=== PATIENT | male | born 1995 | race Two or more races ===

== ENCOUNTER 2018-04-29 18:21 | Inpatient (IN) | payer SELFPAY ==
[~2018-04-29] VITALS: Ht 162.6 cm; Wt 98.9 kg
[2018-04-29] MEDS ORDERED: HYDROMORPHONE 1 MG/1 ML DISP.SYRIN ONE (18:54)
[2018-04-29] MEDS ORDERED: ONDANSETRON HCL/PF 4 MG/2 ML VIAL ONE (18:54)
[2018-04-29] MEDS ORDERED: ONDANSETRON HCL/PF 4 MG/2 ML VIAL IVP ONE (19:00)
[2018-04-29] MEDS ORDERED: HYDROMORPHONE INJ 2 MG/ML DISP.SYRIN IV ONE (19:00)
[2018-04-29] MEDS ORDERED: IV NS 0.9% 1,000 ML BAG IV ONE (19:00)
--- NOTE | 2018-04-29 19:07 | NUR ---
NAD- Stable reclining in bed conversant w/friend at bedside NKE with RN-Cecelia
--- NOTE | 2018-04-29 19:20 | NUR ---
XRAY AT BEDSIDE.
--- NOTE | 2018-04-29 19:21 | NUR ---
REPORT RECEIVED FROM LANDON GANDHI FOR CORDELIA.
--- NOTE | 2018-04-29 19:24 | NUR ---
LAB AT BEDSIDE FOR DRAW.
[2018-04-29 19:37] LABS: BASOPHILS # (AUTO) 0.3 /CMM (0.0-0.2); BASOPHILS % (AUTO) 1.7 % (0.0-2.0); EOSINOPHILS % (AUTO) 0.7 % (0.0-6.0); HEMATOCRIT 45 % (39-51); HEMOGLOBIN 14.6 g/dL (13.5-17.5); LYMPHOCYTES # (AUTO) 1.3 /CMM (0.8-4.8); LYMPHOCYTES % (AUTO) 8.3 % (20.0-44.0); MEAN CORPUSCULAR HGB CONC 33 g/dl (31.0-36.0); MEAN CORPUSCULAR VOLUME 82 fL (80-96); MONOCYTES # (AUTO) 0.8 /CMM (0.1-1.30); NEUTROPHILS # (AUTO) 12.8 /CMM (1.8-8.9); NEUTROPHILS % (AUTO) 84.3 % (43.0-81.0); PLATELET COUNT (AUTO) 314 /CMM (150-450); RDW COEFFICIENT OF VARIATION 13.4 (11.5-15.0); RED BLOOD CELL COUNT(AUTO) 5.46 MIL/uL (4.5-6.0); WHITE BLOOD COUNT (AUTO) 15.3 K/uL (4.3-11.0)
[2018-04-29 19:58] LABS: CALCIUM, SERUM 8.5 mg/dL (8.5-10.1); POTASSIUM 3.7 mmol/L (3.5-5.1)
[2018-04-29 20:14] LABS: ALBUMIN 3.9 g/dL (3.4-5.0); BILIRUBIN,DIRECT 0.2 mg/dL (0.0-0.2); BILIRUBIN,TOTAL 1.4 mg/dL (0.2-1.0); TOTAL PROTEIN, SERUM 7.2 g/dL (6.4-8.2)
[2018-04-29] MEDS ORDERED: ONDANSETRON HCL/PF 4 MG/2 ML VIAL IVP PRN (20:30)
[2018-04-29] MEDS ORDERED: CIPROFLOXACIN IV RTU 400 MG in PREMIX 1 EA IV SCH (20:30)
[2018-04-29] MEDS ORDERED: ACETAMINOPHEN 325 MG TABLET PO PRN (20:30)
--- NOTE | 2018-04-29 21:10 | NUR ---
REPORT GIVEN TO LANDON GROVES FOR CORDELIA.
[2018-04-29] MEDS ORDERED: CIPROFLOXACIN IV RTU 200 ML IV ONE (21:32)
[2018-04-29] MEDS ORDERED: IV PREMIX D5 1/2NS + KCL 1,000 ML IV ONE (21:35)
[2018-04-29 21:40] VITALS: BP 121/68
[2018-04-29] MEDS: Potassium Chloride 20 MEQ in IV D5/0.45 NACL 1,000 ML IV PRN (21:43)
--- NOTE | 2018-04-29 21:48 | NUR ---
PT TRANSPORTED TO [facility] 204.1 VIA STRETCHER WITH EMT. VSS.
[2018-04-29] MEDS ORDERED: METRONIDAZOLE 500MG/ NS 100ML 100 ML IV ONE (21:49)
[2018-04-29] MEDS: PANTOPRAZOLE 40 MG VIAL IV SCH (21:50)
--- NOTE | 2018-04-29 21:50 | NUR ---
MS RN NOTE RECEIVED PATIENT FROM DAY SHIFT, PATIENT IS ALERT AND ORIENTEDX4, AMBULATORY, NO S/S OF RESPIRATORY DISTRESS AND COMPLAINS OF ABDOMINAL PAIN 03/17. IV ON LEFT AC IS PATENT AND INTACT, WILL CONNECT TO FLUID SOON. SKIN IS INTACT, NO EDEMA NOTED. SRX2, BED IN LOW POSITION, CALL LIGHT WITHIN REACH, WILL CONTINUE TO MONITOR PATIENT. Addendum: 04/30/18 at 0335 by TONIE CARR RN [facility]; RECEIVED PATIENT FROM ER FOR ADMISSION.
[2018-04-29] MEDS: METRONIDAZOLE 500MG/ NS 100ML 500 MG in PREMIX 1 EA IV SCH (22:25)
[2018-04-29] MEDS: methylPREDNISolone SOD SUCC 40 MG/ML VIAL IV SCH (22:26)
[2018-04-29] MEDS: HYDROMORPHONE INJ 0.5 MG/0.5 ML SYRINGE IV PRN (23:02)
[2018-04-30] MEDS: LORAZEPAM INJ 2 MG/ML VIAL IV PRN ×2 (00:44→20:20)
[2018-04-30] MEDS ORDERED: METRONIDAZOLE 500MG/ NS 100ML 100 ML IV ONE (04:34)
[2018-04-30] MEDS: METRONIDAZOLE 500MG/ NS 100ML 500 MG in PREMIX 1 EA IV SCH ×3 (04:49→22:08)
[2018-04-30] MEDS: methylPREDNISolone SOD SUCC 40 MG/ML VIAL IV SCH ×2 (04:49→12:39)
--- NOTE | 2018-04-30 06:33 | NUR ---
MS NR NOTE PATIENT IS RESTING IN BED COMFORTABLY, NO ACUTE DISTRESS NOTED SINCE ADMISSION. IV ON LEFT AC IS PATENT AND INTACT, FLUID IS RUNNING. WILL ENDORSE TO DAY SHIFT NURSE FOR CORDELIA.
[2018-04-30 07:32] LABS: HEMATOCRIT 46 % (39-51); HEMOGLOBIN 14.9 g/dL (13.5-17.5); LYMPHOCYTES % (AUTO) 6.4 % (20.0-44.0); MEAN CORPUSCULAR HGB CONC 33 g/dl (31.0-36.0); MEAN CORPUSCULAR VOLUME 85 fL (80-96); MONOCYTES # (AUTO) 0.2 /CMM (0.1-1.30); NEUTROPHILS # (AUTO) 15.3 /CMM (1.8-8.9); NEUTROPHILS % (AUTO) 92.6 % (43.0-81.0); PLATELET COUNT (AUTO) 311 /CMM (150-450); RDW COEFFICIENT OF VARIATION 14.4 (11.5-15.0); RED BLOOD CELL COUNT(AUTO) 5.38 MIL/uL (4.5-6.0); WHITE BLOOD COUNT (AUTO) 16.5 K/uL (4.3-11.0)
--- NOTE | 2018-04-30 07:33 | NUR ---
MS RN OPENING NOTES RECEIVED PT LAYING IN BED, SLEEPING COMFORTABLY. PT IS A/OX4, AFEBRILE. RESPIRATIONS ARE EVEN AND UNLABORED, NOT IN ANY ACUTE DISTRESS NOTED. IV ACCESS INTACT, NO INFILTRATION NOTED. DRESSING KEPT CLEAN AND DRY. REMINDED PT THAT HE IS NPO FOR NOW. SAFETY MEASURES ARE IN PLACE. INSTRUCTED PT TO USE CALL LIGHT WHEN ASSISTANCE IS NEEDED, CALL LIGHT IS LEFT WITHIN REACH. WILL CONTINUE TO MONITOR THROUGHOUT SHIFT FOR CONTINUITY OF CARE.
[2018-04-30 07:59] LABS: ALBUMIN 4.1 g/dL (3.4-5.0); BILIRUBIN,TOTAL 1.4 mg/dL (0.2-1.0); MAGNESIUM 2.1 mg/dL (1.8-2.4); PHOSPHORUS 3.8 mg/dL (2.5-4.9); POTASSIUM 3.9 mmol/L (3.5-5.1); TOTAL PROTEIN, SERUM 8.1 g/dL (6.4-8.2)
[2018-04-30 08:00] VITALS: BP 120/74
[2018-04-30 08:08] LABS: C-REACTIVE PROTEIN 0.3 mg/dL (0.0-0.9); THYROID STIMULATING HORMONE 1.113 uIU/mL (0.358-3.74)
[2018-04-30] MEDS: PANTOPRAZOLE 40 MG VIAL IV SCH (09:39)
[2018-04-30] MEDS: CIPROFLOXACIN IV RTU 400 MG in PREMIX 1 EA IV SCH ×2 (09:40→20:20)
[2018-04-30] MEDS: HYDROMORPHONE INJ 0.5 MG/0.5 ML SYRINGE IV PRN (12:39)
[2018-04-30] MEDS: Potassium Chloride 20 MEQ in IV D5/0.45 NACL 1,000 ML IV PRN (12:48)
[2018-04-30] MEDS ORDERED: PEG 3350/NA SULF,BICARB,CL/KCL 4,000 ML BOTTLE PO ONE (13:00)
--- NOTE | 2018-04-30 13:30 | NUR ---
PT SEEN AND EXAMINED BY DR. MONTOYA W/ ORDERS FOR EGD/COLONOSCOPY TOMORROW AND TO START GOLYTELY TODAY, NPO POST MIDNIGHT. ORDERS NOTED AND CARRIED OUT. CONSENTS SIGNED.
[2018-04-30] MEDS: LACTOBACILLUS RHAMNOSUS GG 1 EACH CAP.SPRINK PO SCH ×2 (14:54→20:20)
[2018-04-30 16:00] VITALS: BP 128/62
[2018-04-30 16:15] LABS: APPEARANCE,URINE CLEAR (CLEAR); BILIRUBIN,URINE NEGATIVE (NEGATIVE); BLOOD, URINE TRACE-INTA Ery/uL (NEGATIVE); COLOR,URINE YELLOW (YELLOW); KETONES,URINE 3+ (NEGATIVE); LEUKOCYTE ESTERASE ,URINE NEGATIVE (NEGATIVE); NITRITE, URINE NEGATIVE (NEGATIVE); PROTEIN,URINE NEGATIVE (NEGATIVE); UGLUCOSE NEGATIVE (NEGATIVE); UROBILINOGEN,URINE 0.2 EU/dL (0.2)
[2018-04-30 16:42] LABS: BACTERIA,URINE None seen /HPF (None Seen); SQUAMOUS EPITHELIAL CELL,UR Few /HPF (None Seen); WBC,URINE 0-2 /HPF (0-3)
--- NOTE | 2018-04-30 18:21 | NUR ---
MS RN CLOSING NOTES ALL DUE MEDS GIVEN, NEEDS MET AND RENDERED. PT REMAINS A/OX4, AFEBRILE. RESPIRATIONS ARE EVEN AND UNLABORED, NOT IN ANY ACUTE DISTRESS NOTED. PT'S PAIN TO ABDOMEN IS CONTROLLED BY DILAUDID, NO C/O CHEST PAIN, NO N/V, SOB NOTED. IV ACCESS INTACT, NO INFILTRATION NOTED. DRESSING KEPT CLEAN AND DRY. SAFETY MEASURES ARE IN PLACE. REMINDED PT TO USE CALL LIGHT WHEN ASSISTANCE IS NEEDED, CALL LIGHT IS LEFT WITHIN REACH. WILL ENDORSE TO NEXT SHIFT FOR CONTINUITY OF CARE.
[2018-04-30] MEDS: ONDANSETRON HCL/PF 4 MG/2 ML VIAL IV PRN (18:41)
[2018-04-30 20:00] VITALS: BP 112/78
--- NOTE | 2018-04-30 20:00 | NUR ---
MS/RN OPENING NOTES PATIENT IN BED, ABLE TO VERBALIZE NEEDS, RESPIRATIONS EVEN AND UNLABORED, REPORTED FEELING ANXIOUS ABOUT PROCEDURE, FAMILY FOR SUPPORT, ATIVAN GIVEN, WILL MONITOR, STOOL TO COLLECT. RECEIVED PATIENT AND SKIN COOL TO TOUCH, REQUIRE FREQUENT MONITORNG FOR SAFETY AND KEEP CALM. NOTED SOME CRYING EPISODE BUT FOR RELEASE OF EMOTION. AM ENDORSE TO CONTINUE CORDELIA, NPO AT MIDNIGHT, ON GO LITELY, MONITORING PATIENT. INTAKE AND OUTPUT. TOLERATED MEDICATION. WILL MONITOR., BED IN LOCK POSITION.
[2018-04-30 21:27] LABS: OCCULT BLOOD STOOL POSITIVE (NEGATIVE)
[2018-05-01] MEDS: METRONIDAZOLE 500MG/ NS 100ML 500 MG in PREMIX 1 EA IV SCH ×3 (05:40→20:27)
--- NOTE | 2018-05-01 06:26 | NUR ---
204-1 MS/RN NOTES PATIENT ABLE TO SLEEP DURING THE NIGHT, RESPIRATIONS EVEN AND UNLABORED, SKIN WARM TO TOUCH, WITH BATHROOM PROVELEGE SUPERVISED. DENIES PAIN. PROVIDED WARM BLANKET. ON NPO FOR PROCEDURE THIS AM, PATIENT AWARE AND FAMILY INVOLVE. MONITORED FOR ANY S/S OF DISCOMFORT. BED IN LOCK POSIITON, CALL LIGHTS WITHIN REACH. WILL ENDORSE TO AM RN FOR CORDELIA.
--- NOTE | 2018-05-01 07:05 | NUR ---
ms rn initial notes Received patient in bed, awake, head of bed elevated, no SOB or distress noted, on room air and tolerated well. Patient is NPO for scheduled EGD. IV intact and patent with IVF infusing well. Call light with in patient reach, will continue to monitor accordingly.
[2018-05-01 07:44] LABS: BASOPHILS # (AUTO) 0.1 /CMM (0.0-0.2); BASOPHILS % (AUTO) 0.4 % (0.0-2.0); HEMATOCRIT 46 % (39-51); HEMOGLOBIN 14.6 g/dL (13.5-17.5); LYMPHOCYTES # (AUTO) 2.3 /CMM (0.8-4.8); LYMPHOCYTES % (AUTO) 10.6 % (20.0-44.0); MEAN CORPUSCULAR HGB CONC 32 g/dl (31.0-36.0); MEAN CORPUSCULAR VOLUME 84 fL (80-96); MONOCYTES # (AUTO) 1.5 /CMM (0.1-1.30); MONOCYTES % (AUTO) 6.8 % (2.0-12.0); NEUTROPHILS # (AUTO) 18.1 /CMM (1.8-8.9); NEUTROPHILS % (AUTO) 82.2 % (43.0-81.0); PLATELET COUNT (AUTO) 311 /CMM (150-450); RDW COEFFICIENT OF VARIATION 14.5 (11.5-15.0); RED BLOOD CELL COUNT(AUTO) 5.45 MIL/uL (4.5-6.0); WHITE BLOOD COUNT (AUTO) 22.1 K/uL (4.3-11.0)
[2018-05-01 07:49] LABS: CREATININE 1.1 mg/dL (0.6-1.3); MAGNESIUM 2.2 mg/dL (1.8-2.4); PHOSPHORUS 4.5 mg/dL (2.5-4.9); POTASSIUM 3.5 mmol/L (3.5-5.1)
[2018-05-01 08:00] VITALS: BP 127/67
[2018-05-01] MEDS: PANTOPRAZOLE 40 MG VIAL IV SCH (08:19)
[2018-05-01] MEDS: CIPROFLOXACIN IV RTU 400 MG in PREMIX 1 EA IV SCH ×2 (08:20→21:55)
[2018-05-01] MEDS: LACTOBACILLUS RHAMNOSUS GG 1 EACH CAP.SPRINK PO SCH ×2 (08:20→17:46)
[2018-05-01] MEDS: HYDROMORPHONE INJ 2 MG/ML DISP.SYRIN IV PRN ×2 (09:35→20:17)
[2018-05-01 13:00] VITALS: BP 119/71
--- NOTE | 2018-05-01 13:00 | NUR ---
ms rn notes Patient came back from the surgery, asleep but able to wake up, vital signs checked and recorded. Will continue to monitor.
[2018-05-01 13:15] VITALS: BP 129/72
[2018-05-01 13:26] LABS: LYMPHOCYTES % (MANUAL) 16 % (16-48); MONOCYTES % (MANUAL) 3 % (0-11.0); NEUTROPHILS % (MANUAL) 81 (42-76)
[2018-05-01 13:45] VITALS: BP 121/68
[2018-05-01] MEDS ORDERED: METR500T PO (15:31)
[2018-05-01] MEDS ORDERED: CIPR500T5 PO (15:31)
[2018-05-01] MEDS ORDERED: PANT40TA2 PO (15:31)
[2018-05-01] MEDS ORDERED: LIPA1CAP15 PO (15:31)
[2018-05-01 16:00] VITALS: BP 110/57
[2018-05-01] MEDS: LIPASE/PROTEASE/AMYLASE 1 EACH CAPSULE.DR PO SCH (17:46)
--- NOTE | 2018-05-01 19:14 | NUR ---
ms rn closing notes All needs provided, attended, and anticipated. Patient in stable condition. Endorsed to next shift RN to continue care. Call light with in patient reach.
--- NOTE | 2018-05-01 19:20 | NUR ---
MS/RN OPENING NOTES PT RECEIVED A/OX4. USING RESTROOM AT THIS TIME. ON ROOM AIR, BREATHING EVEN AND UNLABORED. NO S/S OF ACUTE DISTRESS AT THIS TIME. FAMILY AT BEDSIDE. BED IN LOW/LOCKED POSITION WITH CALL LIGHT IN REACH AND BILATERAL UPPER SIDE RAILS IN PLACE. WILL ASSIST BACK INTO BED
--- NOTE | 2018-05-01 19:59 | NUR ---
MS/RN NOTES PT USING RESTROOM. SHIFT SUPERVISOR MELTING NEARBY. PT SAW BLOOD IN THE TOILET. FELT LIGHT HEADED AND GRABBED ONTO THE DOOR. SHIFT SUPERVISOR MELTING GRABBED PT AND ASSISTED TO THE FLOOR. NO INJURY TO HEAD OR BODY. PT ASSISTED BACK INTO BED. VS TAKEN AND STABLE. BP 111/64, HR 82, RR 18, SPO2 96% ON RA. MEASUREMENT ADVISOR MD NOTIFIED. WILL CONTINUE TO MONITOR.
[2018-05-01 20:00] VITALS: BP 111/64
[2018-05-01] MEDS: LORAZEPAM INJ 2 MG/ML VIAL IV PRN (23:42)
[2018-05-02] MEDS: METRONIDAZOLE 500MG/ NS 100ML 500 MG in PREMIX 1 EA IV SCH ×2 (05:33→12:32)
[2018-05-02] MEDS: ONDANSETRON HCL/PF 4 MG/2 ML VIAL IV PRN ×2 (06:41→14:19)
[2018-05-02 06:57] LABS: BASOPHILS # (AUTO) 0.4 /CMM (0.0-0.2); BASOPHILS % (AUTO) 3.2 % (0.0-2.0); EOSINOPHILS % (AUTO) 0.3 % (0.0-6.0); HEMATOCRIT 42 % (39-51); HEMOGLOBIN 14.2 g/dL (13.5-17.5); LYMPHOCYTES # (AUTO) 1.4 /CMM (0.8-4.8); LYMPHOCYTES % (AUTO) 11.4 % (20.0-44.0); MEAN CORPUSCULAR HGB CONC 34 g/dl (31.0-36.0); MEAN CORPUSCULAR VOLUME 82 fL (80-96); MONOCYTES # (AUTO) 0.9 /CMM (0.1-1.30); MONOCYTES % (AUTO) 7.4 % (2.0-12.0); NEUTROPHILS # (AUTO) 9.8 /CMM (1.8-8.9); NEUTROPHILS % (AUTO) 77.7 % (43.0-81.0); PLATELET COUNT (AUTO) 244 /CMM (150-450); RDW COEFFICIENT OF VARIATION 13.4 (11.5-15.0); RED BLOOD CELL COUNT(AUTO) 5.09 MIL/uL (4.5-6.0); WHITE BLOOD COUNT (AUTO) 12.5 K/uL (4.3-11.0)
--- NOTE | 2018-05-02 07:10 | NUR ---
ms rn initial notes Received patient in bed, asleep, head of bed elevated, no SOB or distress noted. On room air and tolerated well. IV intact and patent with IVF infusing well. No facial grimace noted. patient is alert and oriented x 4, verbally responsive and able to make needs known. call light with in patient reach, will continue to monitor accordingly.
[2018-05-02 07:25] LABS: CALCIUM, SERUM 8.2 mg/dL (8.5-10.1); MAGNESIUM 2.2 mg/dL (1.8-2.4); PHOSPHORUS 4.1 mg/dL (2.5-4.9); POTASSIUM 3.2 mmol/L (3.5-5.1)
--- NOTE | 2018-05-02 07:33 | NUR ---
MS/RN CLOSING NOTES PT AWAKE, RESTING IN BED. REMAINS ON ROOM AIR, BREATHING EVEN AND UNLABORED. NO S/S OF ACUTE DISTRESS AT THIS TIME. DENIES PAIN. PT C/O NAUSEA AND WITH APPROX 50CC OF CLEAR YELLOW EMESIS. ADMINISTERED PRN ZOFRAN ORDERED. WITH EPISODES OF ANXIETY AND ENCOURAGED PT TO EXPRESS CONCERNS/FEELINGS. EMOTIONAL SUPPORT PROVIDED. IV TO LEFT FA PATENT AND INTACT RUNNING IVF ORDERED. BED IN LOW/LOCKED POSITION WITH CALL LIGHT IN REACH AND BILATERAL UPPER SIDE RAILS IN PLACE. ENDORSED TO DAY SHIFT RN CORDELIA.
[2018-05-02 08:00] VITALS: BP 136/71
[2018-05-02 08:04] VITALS: BP 136/71
[2018-05-02] MEDS: PANTOPRAZOLE 40 MG VIAL IV SCH (08:22)
[2018-05-02] MEDS: LIPASE/PROTEASE/AMYLASE 1 EACH CAPSULE.DR PO SCH ×3 (08:22→17:05)
[2018-05-02] MEDS: LACTOBACILLUS RHAMNOSUS GG 1 EACH CAP.SPRINK PO SCH ×2 (08:22→17:20)
[2018-05-02] MEDS: CIPROFLOXACIN IV RTU 400 MG in PREMIX 1 EA IV SCH (08:22)
[2018-05-02 10:15] LABS: *ANCANTIMYELOPEROXIDASE (MPO) <9.0 U/mL (0.0-9.0); *ANCANTIPROTEINASE 3 (PR-3) AB <3.5 U/mL (0.0-3.5)
[2018-05-02] MEDS ORDERED: POTASSIUM CHLORIDE 20 MEQ TAB.PRT.SR PO SCH ×2 (10:30→13:00)
[2018-05-02] MEDS: Potassium Chloride 20 MEQ in IV D5/0.45 NACL 1,000 ML IV PRN (12:36)
[2018-05-02 14:17] LABS: *ANCA ATYPICAL p-ANCA <1:20 titer (Neg:<1:20); *ANCA CYTOPLASMIC (C-ANCA) <1:20 titer (Neg:<1:20); *ANCA PERINUCLEAR (P-ANCA) <1:20 titer (Neg:<1:20)
[2018-05-02 16:00] VITALS: BP 124/79
[2018-05-02] MEDS ORDERED: SUCRALFATE 1 G/10 ML UDC PO ONE (18:00)
[2018-05-02] MEDS: HYDROMORPHONE INJ 2 MG/ML DISP.SYRIN IV PRN (18:50)
--- NOTE | 2018-05-02 19:00 | NUR ---
ms rn cvicu notes discharge instructions given to patent and brother and able to understand instructions. Prescription given. Signed discharge paper and belonging list. no items missing. Health teaching and education rendered. informed to follow up with GI MD in 2 weeks and amenable. No complaint of pain or discomfort noted. nor chest pain. Patient left via wheelchair accompanied by LEAD DESIGNER assigned and brother Otis in stable condition. Vital signs checked and recorded. Flu vaccine refused, <65 years old for the PNA. Skin intact no pictures needed. patient is alert and oriented x 4, verbally responsive and able to make needs known. MD and charge nurse aware.
== END 2018-05-02 19:00 | disposition home or self-care (01) | DRG 392 ==
LOC: ER 18:29 → MEDSG2 21:11
PROVIDERS: ADMIT Nurse Practitioner Acute Care; ATTEND Nurse Practitioner Acute Care
PROC: 0DB78ZX Excision of Stomach, Pylorus, Via Natural or Artificial Opening Endoscopic, Diagnostic (ICD-10-PCS; principal; 2018-05-01 11:15)
PROC: 0DBH8ZX Excision of Cecum, Via Natural or Artificial Opening Endoscopic, Diagnostic (ICD-10-PCS; principal; 2018-05-01 11:15)
PROC: 0DBP8ZX Excision of Rectum, Via Natural or Artificial Opening Endoscopic, Diagnostic (ICD-10-PCS; principal; 2018-05-01 11:15)
DX: K29.70 Gastritis, unspecified, without bleeding (principal); E86.0 Dehydration; E66.01 Morbid (severe) obesity due to excess calories; F06.4 Anxiety disorder due to known physiological condition; K40.20 Bilateral inguinal hernia, without obstruction or gangrene, not specified as recurrent; F12.90 Cannabis use, unspecified, uncomplicated; R56.9 Unspecified convulsions; Z68.37 Body mass index [BMI] 37.0-37.9, adult; F17.210 Nicotine dependence, cigarettes, uncomplicated; K44.9 Diaphragmatic hernia without obstruction or gangrene; K20.9 Esophagitis, unspecified; K62.89 Other specified diseases of anus and rectum; K52.9 Noninfective gastroenteritis and colitis, unspecified; Z80.3 Family history of malignant neoplasm of breast
CPT/HCPCS: 36415; 71045-TC; 80048-TC; 80053-TC; 80061-TC; 80076-TC; 81000-TC; 82272-TC; 83520; 83690-TC; 83735-TC; 84100-TC; 84443-TC; 85025-TC; 85652-TC; 86140-TC; 86256; 87040-TC; 87045-TC; 87081-TC; 87086-TC; 88305-TC; 88313-TC; 88342; 89055; A4216; A4606; C9113; J0744; J1170; J2060; J2405; J2704; J2920; J3480; J3490; J7030; Z7610

== ENCOUNTER 2018-05-04 00:57 | Emergency (ER) | payer SELFPAY ==
[~2018-05-04 00:57] MED LIST: CIPR500T5 PO; LIPA1CAP15 PO; METR500T PO; PANT40TA2 PO
--- NOTE | 2018-05-04 01:00 | NUR ---
CALLED PATIENT. NO RESPONSE
--- NOTE | 2018-05-04 01:20 | NUR ---
CALLED PATIENT. NO RESPONSE
--- NOTE | 2018-05-04 01:41 | NUR ---
CALLED PATIENT. NO RESPONSE
== END 2018-05-04 01:42 | disposition left against medical advice (07) ==
LOC: ER 01:02
DX: Z53.21 Procedure and treatment not carried out due to patient leaving prior to being seen by health care provider (principal); Z87.19 Personal history of other diseases of the digestive system; Z79.899 Other long term (current) drug therapy

== ENCOUNTER 2018-05-17 14:33 | Emergency (ER) | payer SELFPAY ==
[~2018-05-17] VITALS: Ht 162.6 cm; Wt 90.7 kg
[2018-05-17] MEDS ORDERED: ONDANSETRON HCL/PF 4 MG/2 ML VIAL IVP ONE (15:30)
[2018-05-17] MEDS ORDERED: KETOROLAC TROMETHAMINE INJ 30 MG/ML VIAL IV ONE (15:30)
[2018-05-17] MEDS ORDERED: IV NS 0.9% 1,000 ML BAG IV ONE (15:30)
[2018-05-17 15:41] LABS: BASOPHILS # (AUTO) 0.1 /CMM (0.0-0.2); BASOPHILS % (AUTO) 0.9 % (0.0-2.0); EOSINOPHILS % (AUTO) 0.7 % (0.0-6.0); HEMATOCRIT 46 % (39-51); HEMOGLOBIN 15.5 g/dL (13.5-17.5); LYMPHOCYTES # (AUTO) 1.7 /CMM (0.8-4.8); LYMPHOCYTES % (AUTO) 18.4 % (20.0-44.0); MEAN CORPUSCULAR HGB CONC 34 g/dl (31.0-36.0); MEAN CORPUSCULAR VOLUME 81 fL (80-96); MONOCYTES # (AUTO) 1.1 /CMM (0.1-1.30); MONOCYTES % (AUTO) 11.7 % (2.0-12.0); NEUTROPHILS # (AUTO) 6.1 /CMM (1.8-8.9); NEUTROPHILS % (AUTO) 68.3 % (43.0-81.0); PLATELET COUNT (AUTO) 292 /CMM (150-450); RDW COEFFICIENT OF VARIATION 13.2 (11.5-15.0); RED BLOOD CELL COUNT(AUTO) 5.67 MIL/uL (4.5-6.0); WHITE BLOOD COUNT (AUTO) 9.1 K/uL (4.3-11.0)
[2018-05-17 15:53] LABS: CALCIUM, SERUM 9.4 mg/dL (8.5-10.1); CREATININE 0.8 mg/dL (0.6-1.3); POTASSIUM 3.1 mmol/L (3.5-5.1)
[2018-05-17] MEDS ORDERED: ONDANSETRON HCL/PF 4 MG/2 ML VIAL ONE (15:58)
[2018-05-17] MEDS ORDERED: KETOROLAC TROMETHAMINE INJ 30 MG/ML VIAL ONE (15:58)
[2018-05-17 15:59] LABS: BILIRUBIN,DIRECT 0.2 mg/dL (0.0-0.2); BILIRUBIN,TOTAL 0.8 mg/dL (0.2-1.0); TOTAL PROTEIN, SERUM 7.8 g/dL (6.4-8.2)
[2018-05-17] MEDS ORDERED: POTASSIUM CHLORIDE 20 MEQ TAB.PRT.SR PO ONE ×2 (16:30→16:43)
[2018-05-17 16:51] VITALS: BP 122/68
--- NOTE | 2018-05-17 16:52 | NUR ---
IV removed. Catheter intact and site benign. Pressure and 4x4 applied to site. No bleeding noted.Patient discharged to home in stable condition. Written and verbal after care instructions given. Patient verbalizes understanding of instruction.
== END 2018-05-17 16:54 | disposition home or self-care (01) ==
LOC: ER 14:35
DX: K52.9 Noninfective gastroenteritis and colitis, unspecified (principal)
CPT/HCPCS: 36415; 80048; 80076; 83690; 85025; 96361; 96374; 96375; 99284; A4606; J1885; J2405; J7030; Z7610